=== PATIENT | male | born 1960 | race Caucasian/White ===

== ENCOUNTER 2017-10-29 08:25 | Outpatient (CLI) | payer BC ==
--- NOTE | 2017-10-29 10:52 | RAD ---
LUMBAR SPINE FOUR VIEWS: HISTORY: Low back pain. FINDINGS: There is a slight curvature to the left in the mid lumbar spine apex, at L2-L3. On the lateral view, the lumbar vertebrae maintain height. There is slight posterior listhesis of L3 on L4, which does n ot change with flexion or extension. Minimal posterior listhesis is also noted at L2-L3, which does not significantly change with flexion or extension. There is facet hypertrophy at all levels. There is mild degenerative spurring from the lumbar vertebrae. IMPRESSION: Mild to moderate degenerative changes with slight subluxation and minimal scoliotic curvature. POS: NAYAN
== END 2017-10-29 08:26 | disposition home or self-care (01) ==
LOC: SCSRAD 08:25
PROVIDERS: ATTEND Surgery
DX: M47.26 Other spondylosis with radiculopathy, lumbar region (principal)
CPT/HCPCS: 72120

== ENCOUNTER 2017-11-18 12:06 | Outpatient (CLI) | payer BC ==
--- NOTE | 2017-11-18 14:04 | MRI ---
MRI LUMBAR SPINE WITHOUT CONTRAST: Technique: Multiplanar, multisequential imaging of the lumbar spine obtained. History: Low back pain. Radiation to both lower extremities. FINDINGS: Lumbar vertebrae maintain normal height and alignment. There is mild loss of disc space at L3-4. Vert ebral body signal is normal. L1-2: No disc bulge or protrusion. Mild facet arthrosis. No central canal or foraminal stenosis. L2-3: Mild disc bulge and mild facet hypertrophy without significant central canal or foraminal steno sis. L3-4: Broad based disc protrusion flattens the thecal sac. Facet and ligamentous hypertrophy is promi nent. There is posterior epidural fat. These changes compress the thecal sac resulting in moderate ce ntral canal stenosis. Bilateral foraminal stenosis secondary to disc bulge and facet hypertrophy. L4-5: Broad based disc bulge. Prominent facet and ligamentous hypertrophy. Moderate central canal lisa nosis. Asymmetric disc osteophyte projects to the left and encroaches into the left foramina. There i s associated facet hypertrophy resulting in left foraminal stenosis. L5-S1: No significant disc bulge. Prominent facet hypertrophy. No significant central canal or forami nal stenosis. IMPRESSION: 1. Broad based disc protrusion at L3-4 results in moderate central canal stenosis. Mild to moderate c entral canal stenosis is also noted at L4-5 as described above. POS: NAYAN
== END 2017-11-18 12:07 | disposition home or self-care (01) ==
LOC: SCSMRI 12:06
PROVIDERS: ATTEND Surgery
DX: M51.16 Intervertebral disc disorders with radiculopathy, lumbar region (principal); M48.061 Spinal stenosis, lumbar region without neurogenic claudication
CPT/HCPCS: 72148

== ENCOUNTER 2017-12-09 08:47 | Outpatient (CLI) | payer BC ==
[2017-12-09 09:46] LABS: #Basophils 0.1 thou/uL (0.0-0.2); #Eosinphils 0.4 thou/uL (0.0-0.7); #Lymphocytes 2.6 thou/uL (1.20-3.40); #Monocytes 1.5 thou/uL (0.11-0.59); #Neutrophils 9.4 thou/uL (1.40-6.50); %Basophils 0.7 % (0.0-1.0); %Eosinophils 2.9 % (0.0-10.0); %Lymphocytes 18.8 % (21.0-51.0); %Monocytes 10.8 % (0.0-10.0); %Neutrophils 66.7 % (42.0-75.0); Hemoglobin 16.3 g/dL (14.0-18.0); Mean Corpuscular Volume 85.2 fl (80.0-94.0); Mean Platelet Volume 8.1 fL (7.4-10.4); Platelet Count 322 thou/uL (130-400); RBC Distribution Width 12.3 % (11.5-14.5); Red Blood Cell (RBC) Count 5.63 mill/uL (4.70-6.10)
[2017-12-09 10:15] LABS: INR-International Normal Ratio 0.9; Prothrombin Time 12.3 SEC (12.0-14.7)
[2017-12-09 10:26] LABS: PTT 21.7 SEC (22.9-36.1)
[2017-12-09 11:36] LABS: Anion Gap 11 mmol/L (10-20); BUN (Urea Nitrogen) 19 mg/dL (8.4-25.7); Calc. Creatinine Clearance 0 mL/min (70-130); Calcium 9.3 mg/dL (7.8-10.44); Carbon Dioxide 28 mmol/L (22-29); Chloride 97 mmol/L (98-107); Estimated GFR-MDRD 56; Glucose 297 mg/dL (70-105); Potassium 4.2 mmol/L (3.5-5.1); Sodium 132 mmol/L (136-145)
--- NOTE | 2017-12-09 20:27 | EKG ---
Test Reason : Blood Pressure : / mmHG Vent. Rate : 082 BPM Atrial Rate : 082 BPM P-R Int : 164 ms QRS Dur : 082 ms QT Int : 358 ms P-R-T Axes : 029 -87 -14 degrees QTc Int : 418 ms Normal sinus rhythm Left axis deviation Low voltage QRS Possible Anterolateral infarct , age undetermined Abnormal ECG No previous ECGs available Confirmed by ISATU BEATTY (2) on 12/09/2017 8:27:21 PM Referred By: ANNALISA Confirmed By:ISATU BEATTY
== END 2017-12-09 08:48 | disposition home or self-care (01) ==
LOC: LABBT 08:47
PROVIDERS: ATTEND Surgery
DX: Z01.818 Encounter for other preprocedural examination (principal); M51.16 Intervertebral disc disorders with radiculopathy, lumbar region; R94.31 Abnormal electrocardiogram [ECG] [EKG]
CPT/HCPCS: 80048; 85025; 85610; 85730; 93005; 93010

== ENCOUNTER 2017-12-17 08:36 | Day surgery (SDC) | payer BC ==
[2017-12-09 09:03] VITALS: BMI 34.9
[2017-12-17] MEDS ORDERED: CEFAZOLIN/Water 2 GM/20 ML SYRINGE ONE (09:30)
== END 2017-12-17 10:12 | disposition home or self-care (01) ==
LOC: SDC 08:36
PROVIDERS: ATTEND Surgery
DX: M51.16 Intervertebral disc disorders with radiculopathy, lumbar region (principal); M48.061 Spinal stenosis, lumbar region without neurogenic claudication; E11.42 Type 2 diabetes mellitus with diabetic polyneuropathy; I10 Essential (primary) hypertension; Z79.4 Long term (current) use of insulin; Z79.899 Other long term (current) drug therapy; Z53.8 Procedure and treatment not carried out for other reasons

== ENCOUNTER 2018-02-19 08:25 | Outpatient (CLI) | payer BC ==
[2018-02-19 09:53] LABS: Hemoglobin 16.3 g/dL (14.0-18.0); Mean Corpuscular HGB CONC 34.5 g/dL (32.0-36.0); Mean Corpuscular Hemoglobin 29.2 pg (27.0-31.0); Mean Corpuscular Volume 84.4 fL (78.0-98.0); Mean Platelet Volume 7.4 fL (7.4-10.4); Platelet Count 318 thou/uL (130-400); RBC Distribution Width 12.5 % (11.5-14.5); White Blood Cell (WBC) Count 8.9 thou/uL (4.8-10.8)
[2018-02-19 10:03] LABS: PTT 24.6 SEC (22.9-36.1)
[2018-02-19 10:07] LABS: Anion Gap 11 mmol/L (10-20); BUN (Urea Nitrogen) 16 mg/dL (8.4-25.7); Calc. Creatinine Clearance 0 mL/min (70-130); Calcium 9.7 mg/dL (7.8-10.44); Carbon Dioxide 30 mmol/L (22-29); Chloride 103 mmol/L (98-107); Estimated GFR-MDRD 54; Glucose 118 mg/dL (70-105); INR-International Normal Ratio 0.9; Potassium 4.7 mmol/L (3.5-5.1); Prothrombin Time 12.4 SEC (12.0-14.7); Sodium 139 mmol/L (136-145)
--- NOTE | 2018-02-19 13:06 | EKG ---
Test Reason : Blood Pressure : / mmHG Vent. Rate : 077 BPM Atrial Rate : 077 BPM P-R Int : 166 ms QRS Dur : 080 ms QT Int : 350 ms P-R-T Axes : 033 -80 002 degrees QTc Int : 396 ms Normal sinus rhythm Left axis deviation Low voltage QRS Possible Anterolateral infarct (cited on or before 09-DEC-2017) Abnormal ECG When compared with ECG of 09-DEC-2017 09:33, No significant change was found Confirmed by FANG ENRIQUEZ, SDanuta (4) on 02/19/2018 1:05:26 PM Referred By: ANNALISA Confirmed By:DR. Yajaira HEADLEY MD
== END 2018-02-19 08:26 | disposition home or self-care (01) ==
LOC: LABBT 08:25
PROVIDERS: ATTEND Surgery
DX: Z01.818 Encounter for other preprocedural examination (principal); M51.16 Intervertebral disc disorders with radiculopathy, lumbar region
CPT/HCPCS: 80048; 85027; 85610; 85730; 93005; 93010